=== PATIENT | female | born 1960 | race Caucasian/White ===

== ENCOUNTER → 2024-03-19 10:10 | Outpatient (REF) | payer BC, SELFPAY ==
[2024-03-19 12:54] LABS: Glycohemoglobin (HgbA1c) 5.7 % (4.0-5.6)
[2024-03-19 12:55] LABS: HDL Cholesterol 61 mg/dl; LDL Cholesterol, Calculated 171 mg/dl; Total Cholesterol 256 mg/dl (50-199); Triglyceride 124 mg/dl (10-149); Very Low Density Lipoprotein 24 mg/dl (0-30)
== END ==
LOC: HWLAB 10:10
PROVIDERS: ATTENDING PHYSICIAN Internal Medicine Cardiovascular Disease
DX: E78.2 Mixed hyperlipidemia (principal); R73.09 Other abnormal glucose
CPT/HCPCS: 36415; 80061; 83036

== ENCOUNTER → 2024-04-18 12:11 | Outpatient (REF) | payer BC, SELFPAY | LOC: RCS 12:11 | PROVIDERS: ATTENDING PHYSICIAN Internal Medicine Cardiovascular Disease; FAMILY PHYSICIAN Family Medicine | DX: I25.10 Atherosclerotic heart disease of native coronary artery without angina pectoris (principal); R07.2 Precordial pain | CPT/HCPCS: 93017; 93350 ==

== ENCOUNTER → 2024-12-12 08:59 | Outpatient (REF) | payer BC, SELFPAY ==
[2024-12-12 12:06] LABS: Hematocrit 39.1 % (37.0-47.0); Hemoglobin 13.3 g/dL (12.0-16.0); Mean Corp Hgb Conc. 34.0 g/dL (33.0-37.0); Mean Corpuscular Volume 91.4 fL (81.0-99.0); Nucleated Red Blood Cells % 0 %; Platelet Count 223 10^3/uL (130-400); Red Cell Dist. Width 13.2 % (11.5-14.5)
[2024-12-12 12:10] LABS: Urine Character Clear (Clear)
[2024-12-12 12:18] LABS: ALT (SGPT) 26 U/L (0-35); AST (SGOT) 30 U/L (14-36); Albumin 4.6 g/dl (3.5-5.0); Alkaline Phosphatase 81 U/L (38-126); Blood Urea Nitrogen 18 mg/dl (7-17); Calcium 10.0 mg/dl (8.4-10.2); Carbon Dioxide 26 mmol/L (22-30); Chloride 108 mmol/L (98-107); Glucose 118 mg/dl (70-99); HDL Cholesterol 65 mg/dl; LDL Cholesterol, Calculated 58 mg/dl; Magnesium 2.4 mg/dl (1.6-2.3); Potassium 4.0 mmol/L (3.5-5.1); Sodium 141 mmol/L (135-145); Total Protein 7.0 g/dl (6.3-8.2); Very Low Density Lipoprotein 19 mg/dl (0-30); eGFR > 60.00
[2024-12-12 12:36] LABS: Vitamin D, 25-OH*** 57.9 ng/mL (30-80)
[2024-12-12 12:49] LABS: TSH 0.29 uIU/ml (0.47-4.68)
[2024-12-12 12:54] LABS: Glycohemoglobin (HgbA1c) 5.9 % (4.0-5.6)
== END ==
LOC: HWLAB 08:59
PROVIDERS: ATTENDING PHYSICIAN Nurse Practitioner Family; REFERRING PHYSICIAN Internal Medicine Cardiovascular Disease
DX: Z13.0 Encounter for screening for diseases of the blood and blood-forming organs and certain disorders involving the immune mechanism (principal); R73.09 Other abnormal glucose; E78.2 Mixed hyperlipidemia
CPT/HCPCS: 36415; 80053; 80061; 81003; 81015; 82306; 83036; 83735; 84443; 85025

== ENCOUNTER → 2025-01-14 11:07 | Outpatient (REF) | payer BC, SELFPAY ==
[2025-01-14 17:15] LABS: Urine Character Clear (Clear)
[2025-01-14 17:44] LABS: Urine Squamous Cell 0-2 /LPF (Few)
[2025-01-14 17:45] LABS: Urine Red Blood Cell 0-2 /HPF (0-2)
== END ==
LOC: CLAB 11:07
PROVIDERS: ATTENDING PHYSICIAN Nurse Practitioner Family
DX: R82.90 Unspecified abnormal findings in urine (principal)
CPT/HCPCS: 81003; 81015

== ENCOUNTER → 2025-02-04 11:05 | Outpatient (REF) | payer BC, SELFPAY | LOC: HWWDC 11:05 | PROVIDERS: ATTENDING PHYSICIAN Nurse Practitioner Family | DX: Z12.31 Encounter for screening mammogram for malignant neoplasm of breast (principal) | CPT/HCPCS: 77063; 77067 ==

== ENCOUNTER → 2025-03-05 10:54 | Outpatient (REF) | payer BC, SELFPAY | LOC: HWRAD 10:54 | PROVIDERS: ATTENDING PHYSICIAN Nurse Practitioner Family | DX: N95.1 Menopausal and female climacteric states (principal) | CPT/HCPCS: 77080 ==